=== PATIENT | female | born 1980 | race African-American/Black ===

== ENCOUNTER 2019-04-27 07:48 | Outpatient (CLI) | payer BC ==
[2019-04-27 17:26] LABS: Anion Gap 10 mmol/L (10-20); BUN (Urea Nitrogen) 17 mg/dL (7.0-18.7); Calc. Creatinine Clearance 0 mL/min (70-130); Calcium 8.8 mg/dL (7.8-10.44); Carbon Dioxide 24 mmol/L (22-29); Chloride 106 mmol/L (98-107); Estimated GFR-MDRD Greater than 90; Glucose 95 mg/dL (70-105); Potassium 3.6 mmol/L (3.5-5.1); Sodium 136 mmol/L (136-145)
--- NOTE | 2019-04-30 16:47 | EKG ---
Test Reason : Blood Pressure : / mmHG Vent. Rate : 080 BPM Atrial Rate : 080 BPM P-R Int : 144 ms QRS Dur : 104 ms QT Int : 380 ms P-R-T Axes : 047 -05 010 degrees QTc Int : 438 ms Normal sinus rhythm Non-specific intra-ventricular conduction delay Abnormal ECG Confirmed by JENNIFER WHITAKER ([id number]) on 04/30/2019 4:47:00 PM Referred By: EMILY Confirmed By:JENNIFER WHITAKER
== END 2019-04-27 07:49 | disposition home or self-care (01) ==
LOC: LABBT 07:48
PROVIDERS: ATTEND Obstetrics & Gynecology
DX: Z01.818 Encounter for other preprocedural examination (principal)
CPT/HCPCS: 80048; 93005; 93010

== ENCOUNTER 2019-05-02 07:03 | Observation (INO) | payer BC ==
[2019-04-27 17:04] VITALS: BMI 41.0
[2019-04-27 17:07] LABS: Hemoglobin 8.8 g/dL (12.0-16.0); Mean Corpuscular HGB CONC 30.6 g/dL (32.0-36.0); Mean Corpuscular Hemoglobin 21.2 pg (27.0-31.0); Mean Corpuscular Volume 69.4 fL (78.0-98.0); Mean Platelet Volume 8.2 fL (7.4-10.4); Platelet Count 445 thou/uL (130-400); Red Blood Cell (RBC) Count 4.12 mill/uL (4.20-5.40); White Blood Cell (WBC) Count 5.8 thou/uL (4.8-10.8)
--- NOTE | 2019-05-02 07:26 | HP ---
REASON FOR ADMISSION: Total laparoscopic hysterectomy with bilateral salpingectomy and right Ana Paula's duct cyst excision. HISTORY OF PRESENT ILLNESS: Ms. Kate is a 38-year-old 7, para 4, AB 3, spontaneous vaginal delivery x4, who presents with a long history of microcytic anemia associated with menorrhagia and fibroids. She desires definitive surgical management. She also has a symptomatic right Ana Paula's duct cyst. It has been present for several years, is beginning to protrude out the introitus and interfere with intercourse. She desires excision. PATHOLOGICAL TECHNICIAN HISTORY: As noted, negative Pap. PAST MEDICAL HISTORY: Significant for hypertension and migraines. SURGICAL HISTORY: Arthroscopic surgery and BTL. SOCIAL HISTORY: Denies tobacco, alcohol, or drug abuse. FAMILY HISTORY: Noncontributory. ALLERGIES: NONE. MEDICATIONS: 1. Iron. 2. Hydrochlorothiazide. 3. Topiramate. PHYSICAL EXAMINATION: GENERAL: White female 5 foot 3, 240. BMI 42. Blood pressure 124/74, pulse 95, respirations 18. HEENT: Within normal limits, auscultation bilaterally. HEART: Regular rhythm. BREASTS: No masses bilaterally. ABDOMEN: Soft and nontender without rebound or guarding. CERVIX: Vulva without lesions. Vagina, 3-4 cm Ana Paula duct cyst at the introitus. Cervix parous, uterus anteverted at 8 week size. Adnexa, no masses bilaterally. EXTREMITIES: No clubbing, cyanosis, or edema. LABORATORY DATA: Hemogram: Hematocrit 28.6, hemoglobin 8.8, normal white count, platelet count of 445. Base met is within normal limits with normal creatinine, potassium, type and screen is O positive, antibody negative. IMAGING: Ultrasound was performed, which revealed a Ana Paula's duct cyst, uterus measuring 11.9 x 6.5 cm with a 5 cm intracavitary fibroid. Normal adnexa bilaterally with no free fluid. IMPRESSION: 1. Symptomatic fibroids leading to menorrhagia and anemia. 2. Symptomatic Ana Paula's duct cyst. PLAN: Total laparoscopic hysterectomy, bilateral salpingectomy, anticipate vaginal retrieval and excision of Ana Paula's duct cyst. The patient understands risks and benefits of procedure including bleeding, infection, recurrence or Ana Paula's duct cyst, infection of the Ana Paula duct cyst. We will proceed with the aforementioned procedure on 05/02 and administer appropriate antibiotic and DVT prophylaxis. Job ID: [id number]
[2019-05-02] MEDS ORDERED: Bupivacaine HCl 0.5%/Epinephrine 1:200,000/PF 30 ml Vial ONE (08:00)
[2019-05-02] MEDS ORDERED: Famotidine/PF 20 mg/2ml Vial ONE (08:16)
[2019-05-02] MEDS ORDERED: CeleCOXIB 100 MG CAP ONE (08:16)
[2019-05-02] MEDS ORDERED: Gabapentin 300 MG CAP ONE (08:16)
[2019-05-02] MEDS ORDERED: Lidocaine 2% Jelly 5 ML TUBE ONE (08:44)
[2019-05-02] MEDS ORDERED: Fentanyl 100 MCG/2 ML VIAL ONE ×2 (08:44→11:27)
[2019-05-02] MEDS ORDERED: Promethazine HCl 25 MG/ML VIAL SLOW IVP PRN (10:58)
[2019-05-02] MEDS ORDERED: Ondansetron HCl/PF 4 MG/2 ML Vial IVP PRN (10:58)
[2019-05-02] MEDS ORDERED: Promethazine HCl 25 MG/ML VIAL IM PRN (10:58)
--- NOTE | 2019-05-02 12:01 | OP ---
DATE OF PROCEDURE: 05/02/2019 PREOPERATIVE DIAGNOSES: Right paravaginal/Ana Paula duct cyst with leiomyomatous uterus, anemia, and menorrhagia. POSTOPERATIVE DIAGNOSES: Right paravaginal/Ana Paula duct cyst with leiomyomatous uterus, anemia, and menorrhagia. PROCEDURES PERFORMED: Total laparoscopic hysterectomy with da Jerri bilateral salpingectomy and right paravaginal cyst marsupialization. COMMERCIAL SALES DIRECTOR: NANCI Narvaez ANESTHESIA: General endotracheal. ESTIMATED BLOOD LOSS: Less than 100 mL. DRAINS: Elias to gravity. MEDICATIONS: 2 g Ancef preincision. DVT PROPHYLAXIS: SCDs. OPERATIVE FINDINGS: 1. Approximately 200 to 250 g leiomyomatous uterus with features consistent with adenomyosis. 2. Bilateral tubes and ovaries within normal limits, status post Filshie clip application. 3. Right paravaginal cyst drained of mucinous material and marsupialized with 30 mL Elias balloon placed to maintain marsupialization for epithelialization. DISPOSITION: Recovery room in good condition. DESCRIPTION OF PROCEDURE: After obtaining appropriate informed consent, the patient was taken to the operating room, where general endotracheal anesthesia was achieved without difficulty. She was prepped and draped in dorsal lithotomy position. Sliding speculum was placed in vagina. The paravaginal cyst was identified. It was felt to be soft and not of a nature that would interfere with retrieving the uterus through the vagina. So, the decision was made to address it postoperatively. The cervix was identified, grasped with a single-tooth tenaculum. Uterus sounded to 12 cm. SAMEER manipulator was placed with a 4-cm vaginal plugging machine operator and a 10-cm uterine obturator without difficulty, and a Elias catheter was placed draining 250 mL of clear urine and placing a large 60 mL syringe for placement upon the operative field. The speculum and tenaculum were removed, and the hoist operator changed his gloves, turned attention to abdominal portion of procedure. A 5 mL of Marcaine was injected at all trocar sites. Primary site was 2-cm above the umbilicus, where a 12-mm skin incision was made and was elevated. Veress needle was placed inside the abdominal cavity, insufflation was carried out with carbon dioxide for a maximum pressure of 15, volume approximately 3.5 L. A 12-mm balloon Sam trocar was placed without difficulty, and camera was introduced, which confirmed entry into the peritoneal cavity without trauma to the underlying viscera. The patient was placed in steep Trendelenburg position. The right and left lateral da Jerri ports were placed under direct visualization as well as an 11-mm assistant corporate controller port in the right upper quadrant. Da Jerri robot was docked. Monopolar scissors were placed in the right hand and bipolar fenestrated forceps in the left. Attention was turned to the left adnexa with the fallopian tube distal portion was coagulated and transected across the mesosalpinx and removed along with the Filshie clip. The utero-ovarian ligament was then coagulated and transected through the broad and the round. The peritoneum anteriorly and posteriorly was opened in the left side of the pelvis, skeletonizing out the uterine vessels, identifying the ureter, which was well lateral to the operative field and taken down the vesicouterine peritoneum at the level of the internal cervical os and dissecting it off the cervix and upper vagina. Skeletonization of the vessels was carried out on this side. They were coagulated, transected, and noted to be hemostatic. Attention was turned to the patient's right, where the identical procedure was carried out. Filshie clip was absent on this side, but tubal ligation was noted. The distal portion was coagulated through the mesosalpinx and removed, then the utero-ovarian, the broad and the round ligament, and down the level of the internal cervical os. The peritoneum was opened up on each side. Ureter was identified and noted to be well lateral. Skeletonization of uterine vessels was carried out, bladder noted to be well off the cervix and anterior vagina, and the uterine vessels were coagulated and transected. Once this was accomplished, the peritoneum was opened up along the level of the cervix anteriorly and posteriorly completely. The vagina was entered posteriorly at 6 o'clock and extended from 6 to 3 and 6 to 9 and then from 12 to 3 and 12 to 9, amputating the specimen. The specimen was pulled into the vagina to maintain pneumoperitoneum. Suction irrigation was carried out in the pelvis. Paravaginal cyst could be identified laparoscopically and the vagina was noted not to extend to the level of the apex of the vagina or the cuff and no evidence of communication of it with the peritoneal cavity was noted. The vaginal cuff was closed using a running continuous stitch of 2-0 PDS Stratafix in a running continuous manner from the patient's right to left and then back to right in a 2 layer manner. Suction irrigation was carried out and good hemostasis was noted. The bladder was backfilled and noted to be away from the cuff closure, and Tisseel was applied across all surgical areas. Da Jerri instruments were removed. The da Jerri robot was undocked, the abdomen was desufflated of carbon dioxide, and trocars were removed x4. Fascia reapproximated the umbilical trocar site using 0 Vicryl on a UR5 needle and skin reapproximated x4 with Monocryl and Dermabond subcuticular stitch. Attention was turned to the vaginal portion of procedure. The patient's legs were rotated up in the Augie stirrups, and a weighted speculum was placed in vagina. The apex of the vagina was identified, noted to be intact, well closed. No evidence of laceration to the vagina from retrieval of the uterus was noted. The paravaginal cyst was inspected and appreciated. Decision was made because of its location starting at 9 o'clock and really going all the way essentially almost 12 o'clock anteriorly underneath the bladder and urethra, not to excise the cyst, but rather to marsupialize it. It was felt to likely be a Ana Paula's duct cyst, although other paravaginal cyst is possible. The most inferior area closest to 9 o'clock was identified and grasped and isolated approximately 2 cm area with Allis clamps and infiltrated with 5 mL of Marcaine with epinephrine. A #15-blade was used to incise it down to the level of the cyst, where copious mucoid, nonpurulent material was encountered and expressed. Digital exploration of the cyst was carried out with the hoist operator's fingers, which revealed it to be smooth and no evidence of communication with the bladder, inguinal canal, or urethra was noted. The cyst was marsupialized on the level of the incision using a running continuous 2-0 chromic suture, leaving an opening of approximately 10 to 13 mm. A 22-Occitan Elias was introduced into the cavity and 30 mL put into the Elias balloon. This should be left for up to 2 weeks to help facilitate epithelialization of the marsupialization postoperatively. Counts were correct at this point in time, and the patient was awakened and extubated to recovery room in good condition. Job ID: [id number]
[2019-05-02] MEDS ORDERED: Glycopyrrolate 0.2 MG/ML 5 ML SYRINGE ONE (12:23)
[2019-05-02] MEDS ORDERED: Lidocaine 1% PF 5 ML VIAL ONE (12:23)
[2019-05-02] MEDS ORDERED: PROPOFOL 200 MG/20 ML VIAL ONE (12:23)
[2019-05-02] MEDS ORDERED: Dexamethasone 20 MG/5 ML VIAL ONE (12:23)
[2019-05-02] MEDS ORDERED: Rocuronium Bromide 10 MG/ML (10ML VIAL) ONE (12:23)
[2019-05-02] MEDS ORDERED: Ondansetron PF 4 MG/2 ML Vial ONE (12:23)
[2019-05-02] MEDS ORDERED: Simethicone Chewable 80 MG TAB PO PRN (14:23)
[2019-05-02] MEDS ORDERED: Zolpidem Tartrate 5 MG TAB PO PRN (14:23)
[2019-05-02] MEDS ORDERED: HYDROcodone/Acetaminophen 10/325 mg Tablet PO PRN ×2 (14:23)
[2019-05-02] MEDS ORDERED: Ondansetron PF 4 MG/2 ML Vial IVP PRN (14:23)
[2019-05-02] MEDS ORDERED: diphenhydrAMINE 25 MG CAP PO PRN (14:23)
[2019-05-02] MEDS ORDERED: Morphine 4 MG/ML VIAL SLOW IVP PRN (14:23)
[2019-05-02] MEDS: Ketorolac Tromethamine 30 MG/ML VIAL IVP SCH ×2 (15:31→20:16)
[2019-05-02] MEDS: Acetaminophen 1,000 MG in Premix Bag 1 BAG IVPB SCH ×2 (15:31→20:17)
[2019-05-02] MEDS: Sodium Chloride 0.9% 1,000 ML IV SCH ×2 (15:32→20:16)
[2019-05-02] MEDS: Morphine 2 MG/ML SYRINGE SLOW IVP PRN ×2 (16:28→20:20)
[2019-05-03] MEDS: Sodium Chloride 0.9% 1,000 ML IV SCH ×2 (02:09→14:55)
[2019-05-03] MEDS: Ketorolac Tromethamine 30 MG/ML VIAL IVP SCH ×3 (02:11→15:40)
[2019-05-03] MEDS: Acetaminophen 1,000 MG in Premix Bag 1 BAG IVPB SCH ×2 (02:11→08:33)
[2019-05-03 04:15] VITALS: BP 114/79; TEMP 97.6
[2019-05-03] MEDS: Morphine 2 MG/ML SYRINGE SLOW IVP PRN (04:40)
[2019-05-03 05:18] LABS: Hemoglobin 8.3 g/dL (12.0-16.0); Mean Corpuscular HGB CONC 29.4 g/dL (32.0-36.0); Mean Corpuscular Hemoglobin 20.4 pg (27.0-31.0); Mean Corpuscular Volume 69.3 fL (78.0-98.0); Mean Platelet Volume 7.8 fL (7.4-10.4); Platelet Count 451 thou/uL (130-400); RBC Distribution Width 17.2 % (11.5-14.5); Red Blood Cell (RBC) Count 4.05 mill/uL (4.20-5.40); White Blood Cell (WBC) Count 9.8 thou/uL (4.8-10.8)
[2019-05-03] MEDS ORDERED: TOPIRAMATE 25 MG PO SCH (09:00)
[2019-05-03] MEDS ORDERED: Hydrochlorothiazide 25 MG TAB PO SCH (09:00)
--- NOTE | 2019-05-04 02:21 | DIS ---
DATE OF ADMISSION: 05/02/2019 DATE OF DISCHARGE: 05/03/2019 SUMMARY OF HOSPITAL COURSE: The patient underwent a TLH, bilateral salpingectomy and drainage of right Ana Paula duct cyst with marsupialization. She had an unremarkable postoperative course, was able to void after removal of her Elias catheter and a stable hematocrit. She will be discharged home with a 30 cc Elias catheter in situ in the marsupialized cyst. Voiding with ease. Her narcotics for discharge were sent preoperatively, which included [place] and ibuprofen. She will be followed up at [facility] in 2 weeks. Pathology pending. Job ID: [id number]
== END 2019-05-03 15:35 | disposition home or self-care (01) ==
LOC: SDC 07:03 → SURG B 11:07
PROVIDERS: ADMIT Obstetrics & Gynecology; ATTEND Obstetrics & Gynecology
PROC: 0UBG0ZZ Excision of Vagina, Open Approach (ICD-10-PCS; principal; 2019-05-02)
PROC: 0UT94ZZ Resection of Uterus, Percutaneous Endoscopic Approach (ICD-10-PCS; 2019-05-02)
PROC: 0UT74ZZ Resection of Bilateral Fallopian Tubes, Percutaneous Endoscopic Approach (ICD-10-PCS; 2019-05-02)
DX: D25.0 Submucous leiomyoma of uterus (principal); Q52.4 Other congenital malformations of vagina; N72 Inflammatory disease of cervix uteri; N88.8 Other specified noninflammatory disorders of cervix uteri; N83.8 Other noninflammatory disorders of ovary, fallopian tube and broad ligament; N80.0 Endometriosis of uterus; D50.0 Iron deficiency anemia secondary to blood loss (chronic); I10 Essential (primary) hypertension; G43.909 Migraine, unspecified, not intractable, without status migrainosus; Z79.899 Other long term (current) drug therapy
CPT/HCPCS: 36415; 85027; 86850; 86900; 86901; 88307; 96361; 96374; 96375; 96376; G0378; J0131; J0670; J0690; J1100; J1885; J2001; J2270; J2405; J2704; J3010; S0028